=== PATIENT | female | born 1940 | race Caucasian/White ===

== ENCOUNTER 2020-06-28 11:46 | Outpatient (CLI) | payer MEDICARE, OTHER | END 2020-06-28 11:47 | disposition EMS.NT | LOC: EMS 11:46 | PROVIDERS: ATTEND Surgery | DX: Z03.89 Encounter for observation for other suspected diseases and conditions ruled out (principal) ==

== ENCOUNTER 2020-06-28 14:16 | Outpatient (CLI) | payer MEDICARE, OTHER | END 2020-06-28 14:17 | disposition critical access hospital (66) | LOC: EMS 14:16 | PROVIDERS: ATTEND Surgery | DX: R42 Dizziness and giddiness (principal) | CPT/HCPCS: A0425; A0426; A0429 ==

== ENCOUNTER 2020-06-28 14:53 | Emergency (ER) | payer MEDICARE, OTHER ==
--- NOTE | 2020-06-28 15:02 | ED Physician Documentation ---
PD HPI SYNCOPE - Stated complaint Stated Complaint: GLF/ LIGHTHEADED - History obtained from History obtained from: Patient, EMS - History of Present Illness Witnessed: Unwitnessed Timing - onset: Today (Patient states she had onset of feeling general weakness, lightheaded with standing, and "just not feeling well" started this morning about 9 am. She continued with feeling of general unwellness and fatigue through the rest of the day. Lightheaded and faint chest discomfort through the morning.) Preceding symptoms: Light headed, Generalized weakness. No: Chest pain, Dyspnea, Abdominal pain, Nausea / vomiting Associated symptoms: Chest pain (faint discomfort). No: Headache, Diaphoresis, Nausea / vomiting, Abdominal pain Contributing factors: Just stood up. No: Recent med change, Decreased PO intake, Noxious stimulae Injury occurred: No: Fell, Head injury, Neck injury Review of Systems Constitutional: reports: Fatigue (onset today). denies: Fever, Chills Nose: denies: Rhinorrhea / runny nose, Congestion Throat: denies: Sore throat Cardiac: reports: Chest pain / pressure (mild today). denies: Palpitations, Pedal edema, Calf pain Respiratory: denies: Cough GI: denies: Abdominal Pain, Nausea, Vomiting, Diarrhea : denies: Dysuria Skin: denies: Rash, Lesions Musculoskeletal: denies: Extremity swelling Neurologic: reports: Generalized weakness, Near syncope. denies: Focal weakness, Numbness, Syncope, Altered mental status, Headache Immunocompromised: denies: Immunocompromised PD PAST MEDICAL HISTORY - Past Medical History Cardiovascular: Hypertension, Murmur Respiratory: None Neuro: None Endocrine/Autoimmune: HyPOthyroidism GI: None - Allergies Allergies/Adverse Reactions: Allergies Allergy/AdvReac Type Severity Reaction Status Date / Time No Known Drug Allergies Allergy Verified 06/28/20 16:42 - Family History Family history: reports: CAD, Other (heart murmur) PD ED PE NORMAL - Vitals Vital signs reviewed: Yes - General General: Alert and oriented X 3, No acute distress, Well developed/nourished - HEENT HEENT: Moist mucous membranes, Pharynx benign - Neck Neck: Supple, no meningeal sign, No adenopathy - Cardiac Cardiac: RRR, No rub, Other (2/6 murmur left chest radiating to neck. ) - Respiratory Respiratory: Clear bilaterally - Abdomen Abdomen: Soft, Non tender - Back Back: No CVA TTP - Derm Derm: Normal color, Warm and dry - Extremities Extremities: No deformity, No tenderness to palpate, Normal ROM s pain, No edema, No calf tenderness / cord - Neuro Neuro: Alert and oriented X 3, No motor deficit, Normal speech Eye Opening: Spontaneous Motor: Obeys Commands Verbal: Oriented GCS Score: 15 Results - Vitals Vitals: Vital Signs - 24 hr 06/28/20 06/28/20 14:54 15:03 Temperature 36.6 C Heart Rate 86 84 Respiratory 16 18 Rate Blood Pressure 131/73 H 122/66 O2 Saturation 99 100 Oxygen O2 Source Room air - EKG (time done) 14:57 Rate: Rate (enter#) (82) Rhythm: NSR Intervals: Normal MI, RBBB (incomplete) Ischemia: ST elevation c/w ischemia (V2 minimally, but not in pattern for STEMI per se.). No: ST depression Compare to prior EKG: Old EKG unavailable - Labs Labs: Laboratory Tests 06/28/20 06/28/20 06/28/20 15:20 15:20 15:20 WBC 9.2 RBC 3.32 L Hgb 11.6 L Hct 34.2 L MCV 103.0 H MCH 34.9 H MCHC 33.9 RDW 14.1 Plt Count 209 MPV 10.9 H Neut # (Auto) 7.5 H Lymph # (Auto) 0.6 L [place] # (Auto) 1.0 Eos # (Auto) 0.0 Baso # (Auto) 0.0 Absolute Nucleated RBC 0.00 Nucleated RBC % 0.0 Sodium 141 Potassium 2.9 L Chloride 102 Carbon Dioxide 26 Anion Gap 13.0 BUN 27 H Creatinine 0.5 Estimated GFR (MDRD) 119 Glucose 110 H Calcium 9.3 Magnesium 1.9 Total Bilirubin 1.0 AST 68 H ALT 38 Alkaline Phosphatase 45 Troponin I High Sens 230.3 H* B-Natriuretic Peptide Total Protein 6.9 Albumin 3.9 Globulin 3.0 Albumin/Globulin Ratio 1.3 Lipase 22 06/28/20 15:20 WBC RBC Hgb Hct MCV MCH MCHC RDW Plt Count MPV Neut # (Auto) Lymph # (Auto) [place] # (Auto) Eos # (Auto) Baso # (Auto) Absolute Nucleated RBC Nucleated RBC % Sodium Potassium Chloride Carbon Dioxide Anion Gap BUN Creatinine Estimated GFR (MDRD) Glucose Calcium Magnesium Total Bilirubin AST ALT Alkaline Phosphatase Troponin I High Sens B-Natriuretic Peptide 445 H Total Protein Albumin Globulin Albumin/Globulin Ratio Lipase - Rads (name of study) chest xray Radiology: Prelim report reviewed, See rad report PD MEDICAL DECISION MAKING - ED course Complexity details: reviewed results (slightly concerning ECG wth V2 minimal elevation. ), re-evaluated patient, considered differential, d/w patient, d/w care consultant (No on-call for cardiology who directs medication treatments incl uding heparin drip and refers to the hospitalist) Departure - Departure Disposition: 02 Transfer Acute Care Hosp Clinical Impression: Lightheadedness, Chest discomfort, Elevated troponin, Non-STEMI (non-ST elevated myocardial infarction) Condition: Stable Record reviewed to determine appropriate education?: Yes
[2020-06-28 15:38] LABS: BASOPHILS % (AUTO) 0.3 %; EOSINOPHILS % (AUTO) 0.1 %; HGB - HEMOGLOBIN 11.6 g/dL (12.0-16.0); LYMPHOCYTES # (AUTO) 0.6 10^3/uL (1.5-3.5); LYMPHOCYTES % (AUTO) 6.2 %; MEAN CORPUSCULAR HEMOGLOBIN 34.9 pg (27.0-31.0); MEAN CORPUSCULAR HGB CONC 33.9 g/dL (32.0-36.0); MEAN PLATELET VOLUME 10.9 fL (7.9-10.8); MONOCYTES % (AUTO) 10.8 %; NEUTROPHILS # (AUTO) 7.5 10^3/uL (1.5-6.6); NEUTROPHILS % (AUTO) 82.3 %; PLT - PLATELET COUNT 209 10^3/uL (130-450); RED BLOOD COUNT 3.32 10^6/uL (4.20-5.40); RED CELL DISTRIBUTION WIDTH 14.1 % (12.0-15.0); WHITE BLOOD COUNT 9.2 x10^3/uL (4.8-10.8)
[2020-06-28 15:53] LABS: ALBUMIN 3.9 g/dL (3.2-5.5); ALBUMIN/GLOBULIN RATIO 1.3 (1.0-2.2); CALCIUM 9.3 mg/dL (8.5-10.3); CREATININE 0.5 mg/dL (0.4-1.0); MAGNESIUM 1.9 mg/dL (1.7-2.8); TOTAL PROTEIN 6.9 g/dL (6.7-8.2)
--- NOTE | 2020-06-28 15:57 | XRAY Report ---
PROCEDURE: Chest 1 View X-Ray INDICATIONS: Chest Pain TECHNIQUE: One view of the chest was acquired. COMPARISON: None. FINDINGS: Surgical changes and devices: None. Lungs and pleura: No pleural effusions or pneumothorax. Lungs are clear. Prominent lung volumes. Mediastinum: Mediastinal contours appear normal. Heart size is normal. Bones and chest wall: No suspicious bony lesions. Overlying soft tissues appear unremarkable. IMPRESSION: No acute cardiopulmonary abnormality. Emphysematous change. Reviewed by: Harpreet Hall MD on 06/28/2020 3:56 PM PDT Approved by: Harpreet Hall MD on 06/28/2020 3:56 PM PDT Station ID: [id number]
[2020-06-28] MEDS ORDERED: ASPIRIN CHEW 81 MG TABLET PO STA (16:09)
[2020-06-28] MEDS ORDERED: POTASSIUM CHLOR 10 MEQ/100 ML 10 MEQ/100 ML BAG IV STA (16:09)
[2020-06-28] MEDS ORDERED: CLOPIDOGREL 75 MG TABLET PO STA (16:25)
[2020-06-28] MEDS ORDERED: ATORVASTATIN 10 MG TABLET PO STA (16:25)
[2020-06-28] MEDS ORDERED: METOPROLOL TARTRATE 50 MG TABLET PO STA (16:57)
[2020-06-28] MEDS ORDERED: HEPARIN 25000UNITS/500ML (D5W) 25,000 UNIT/500 ML BAG IV SCH (17:00)
[2020-06-28 19:52] VITALS: BP 112/60
== END 2020-06-28 19:55 | disposition short-term general hospital (02) ==
LOC: EDUNIT# → ED 14:53
DX: I21.4 Non-ST elevation (NSTEMI) myocardial infarction (principal); I45.10 Unspecified right bundle-branch block; R42 Dizziness and giddiness; I10 Essential (primary) hypertension; Z82.49 Family history of ischemic heart disease and other diseases of the circulatory system
CPT/HCPCS: 36415; 71045; 80053; 83690; 83735; 83880; 84484; 85025; 93005; 96365; 96375; 99284; 99285; A9270

== ENCOUNTER 2020-06-28 19:49 | Outpatient (CLI) | payer MEDICARE, OTHER | END 2020-06-28 19:50 | disposition short-term general hospital (02) | LOC: EMS 19:49 | PROVIDERS: ATTEND Surgery | DX: R77.8 Other specified abnormalities of plasma proteins (principal); R07.9 Chest pain, unspecified ==

== ENCOUNTER 2020-09-02 15:19 | Outpatient (CLI) | payer MEDICARE, OTHER | END 2020-09-02 15:20 | disposition home or self-care (01) | LOC: COV 15:19 | PROVIDERS: ATTEND Family Medicine | DX: Z20.828 Contact with and (suspected) exposure to other viral communicable diseases (principal) ==

== ENCOUNTER 2024-03-08 12:58 | Outpatient (CLI) | payer MEDICARE, OTHER ==
--- NOTE | 2024-03-08 23:12 | XRAY Report ---
PROCEDURE: Toe(s) 2+V BL INDICATIONS: BILATERAL HALLUX OSTEOMYELITIS TECHNIQUE: 3 views of the bilateral great toe(s) acquired. COMPARISON: None. FINDINGS: Bones: Decreased mineralization. No acute fractures. There are prominent mid foot degenerative change s at the tarsometatarsal joints 2 through 5 bilaterally. Moderate first TP joint degeneration with sp urs and slight subluxation. Minimal degeneration at the left first MTP joint. Mild hallux valgus bila terally. The first IP joints. There is wispy periostitis seen along the medial aspects of both first distal digits. No definite erosive changes. Soft tissues: No suspicious soft tissue densities. No visible radiodense foreign bodies or soft tiss ue gas. There is artifact of overlying bandages around the great toe. IMPRESSION: Osteopenia. There is wispy irregular periostitis along the medial aspects of the first distal phalanx bilaterally suggesting chronic osteomyelitis. No erosions to suggest acute infection. Radiographs are insensitive in the acute phase of osteomyelit is and if there is continued concern, MR imaging or nuclear medicine imaging is recommended. Degenerative changes predominantly in the TMT joints and great first MTP joint. Reviewed by: Beena Saleh MD on 03/08/2024 11:11 PM PDT Approved by: Beena Saleh MD on 03/08/2024 11:11 PM PDT Station ID: [id number]
== END 2024-03-08 12:59 | disposition home or self-care (01) ==
LOC: DI 12:58
PROVIDERS: ATTEND Family Medicine
DX: M86.9 Osteomyelitis, unspecified (principal); M19.072 Primary osteoarthritis, left ankle and foot; M19.071 Primary osteoarthritis, right ankle and foot; M85.872 Other specified disorders of bone density and structure, left ankle and foot; M85.871 Other specified disorders of bone density and structure, right ankle and foot

== ENCOUNTER 2024-04-25 16:20 | Outpatient (CLI) | payer MEDICARE, OTHER ==
--- NOTE | 2024-04-26 16:30 | XRAY Report ---
Foot 3+V LT HISTORY: 83 years of age, OSTEOMYELITIS L HALLUX TECHNIQUE: Foot 3+V LT COMPARISON: 03/08/2024. FINDINGS/IMPRESSION: Severe osteopenia, limiting evaluation. Moderate degenerative changes in the midfoot. Small plantar c alcaneus enthesophyte. Mild periosteal reaction along the medial cortex of the first distal phalanx, unchanged from prior ex am, nonspecific. No interval development of cortical erosion to suggest acute osteomyelitis. No acute fracture or dislocation. If there is continued clinical concern for osteomyelitis, MRI can be considered. Reviewed by: Mita Couch MD on 04/26/2024 4:04 PM PDT Approved by: Mita Couch MD on 04/26/2024 4:04 PM PDT Station ID: [id number]
== END 2024-04-25 16:21 | disposition home or self-care (01) ==
LOC: DI 16:20
PROVIDERS: ATTEND Family Medicine
DX: G62.9 Polyneuropathy, unspecified (principal); M86.672 Other chronic osteomyelitis, left ankle and foot; M86.671 Other chronic osteomyelitis, right ankle and foot; L97.512 Non-pressure chronic ulcer of other part of right foot with fat layer exposed; L97.526 Non-pressure chronic ulcer of other part of left foot with bone involvement without evidence of necrosis; M85.872 Other specified disorders of bone density and structure, left ankle and foot; M19.072 Primary osteoarthritis, left ankle and foot; M77.32 Calcaneal spur, left foot

== ENCOUNTER 2024-04-25 16:36 | Outpatient (CLI) | payer MEDICARE, OTHER ==
[2024-04-25 17:03] LABS: BASOPHILS # (AUTO) 0.1 10^3/uL (0.0-0.1); BASOPHILS % (AUTO) 1.5 %; EOSINOPHILS # (AUTO) 0.1 10^3/uL (0.0-0.7); HCT - HEMATOCRIT 40.8 % (37.0-47.0); HGB - HEMOGLOBIN 12.9 g/dL (12.0-16.0); LYMPHOCYTES # (AUTO) 1.4 10^3/uL (1.5-3.5); LYMPHOCYTES % (AUTO) 20.8 %; MEAN CORPUSCULAR HEMOGLOBIN 30.1 pg (27.0-31.0); MEAN CORPUSCULAR HGB CONC 31.6 g/dL (32.0-36.0); MEAN CORPUSCULAR VOLUME 95.3 fL (81.0-99.0); MEAN PLATELET VOLUME 10.9 fL (7.9-10.8); MONOCYTES # (AUTO) 0.6 10^3/uL (0.0-1.0); MONOCYTES % (AUTO) 9.4 %; NEUTROPHILS # (AUTO) 4.4 10^3/uL (1.5-6.6); PLT - PLATELET COUNT 184 10^3/uL (130-450); RED BLOOD COUNT 4.28 10^6/uL (4.20-5.40); RED CELL DISTRIBUTION WIDTH 14.3 % (12.0-15.0); WHITE BLOOD COUNT 6.6 x10^3/uL (4.8-10.8)
[2024-04-25 17:16] LABS: ALBUMIN 4.2 g/dL (3.2-5.5); ALBUMIN/GLOBULIN RATIO 1.4 (1.0-2.2); ALKALINE PHOSPHATASE 73 IU/L (42-121); ALT ALANINE AMINOTRANSFERASE 11 IU/L (10-60); AST ASPARTATE AMINOTRANSFERASE 16 IU/L (10-42); BILIRUBIN,TOTAL 0.5 mg/dL (0.2-1.0); BUN - BLOOD UREA NITROGEN 15 mg/dL (6-20); CALCIUM 9.7 mg/dL (8.5-10.3); CARBON DIOXIDE - CO2 31 mmol/L (21-32); CHLORIDE 105 mmol/L (101-111); CREATININE 0.4 mg/dL (0.6-1.3); CRP - C-REACTIVE PROTEIN < 0.5 mg/dL (<0.5); GFR - MDRD 153 (>89); GLUCOSE 97 mg/dL (74-104); POTASSIUM 4.1 mmol/L (3.5-4.5); SODIUM 141 mmol/L (135-145); TOTAL PROTEIN 7.2 g/dL (6.4-8.9)
== END 2024-04-25 16:37 | disposition home or self-care (01) ==
LOC: LAB 16:36
PROVIDERS: ATTEND Family Medicine
DX: G62.9 Polyneuropathy, unspecified (principal); M86.672 Other chronic osteomyelitis, left ankle and foot; M86.671 Other chronic osteomyelitis, right ankle and foot; L97.512 Non-pressure chronic ulcer of other part of right foot with fat layer exposed; L97.526 Non-pressure chronic ulcer of other part of left foot with bone involvement without evidence of necrosis
CPT/HCPCS: 36415; 80053; 85025; 85651; 86140